=== PATIENT | female | born 1975 | race Caucasian/White ===

== ENCOUNTER 2017-01-07 06:34 | Inpatient (IN) | payer OTHER ==
[2016-12-31 10:51] VITALS: BMI 45.1
[2017-01-07] MEDS ORDERED: Lactated Ringer's 1,000 ML IV ONE ×5 (07:45→15:30)
[2017-01-07] MEDS ORDERED: ceFAZolin IV 2 gm in Dextrose 1 GM/50 ML BAG IVPB ONE (07:57)
[2017-01-07] MEDS ORDERED: Bupivacaine 0.5% Inj(30mL) ONE (08:08)
[2017-01-07] MEDS ORDERED: HYDROmorphone 0.5 mg/0.5 ml ISec IVP PRN (09:20)
[2017-01-07] MEDS ORDERED: Dexamethasone 4 mg/1 ml IVP PRN (09:20)
[2017-01-07] MEDS ORDERED: Sodium Chloride 0.9% 40 ML IV ONE (09:55)
[2017-01-07] MEDS ORDERED: Methylene Blue 10 mg/ml (1ml) Inj ONE (09:55)
[2017-01-07] MEDS ORDERED: Vasopressin 20 Units/ml Inj ONE (09:55)
[2017-01-07] MEDS ORDERED: Morphine Monoject Barrel PCA 1mg/ml IV PRN (11:58)
[2017-01-07] MEDS ORDERED: Propofol 10 mg/ml Inj (20 ML) ONE (12:41)
[2017-01-07] MEDS ORDERED: Midazolam 2 MG/2 ML VIAL ONE (12:43)
[2017-01-07] MEDS ORDERED: ceFAZolin IV 1 gm in Dextrose 2 GM/100 ML BAG IVPB ONE (13:02)
[2017-01-07] MEDS ORDERED: Succinylcholine Chloride 20 mg/ml Syr (5 ml) IV ONE (13:12)
[2017-01-07] MEDS ORDERED: Neostigmine Methylsulfate 3mg/3ml Syringe IV ONE (13:37)
--- NOTE | 2017-01-07 13:43 | PCM.SURG1 ---
Surgeon's Initial Post Op Note - Surgeon's Notes Surgeon: Addie Boudreaux MD Peripheral Edp Equipment Operator: Kedar Mulligan MD Type of Anesthesia: General Endo Pre-Operative Diagnosis: Abnormal uterine bleeding, pelvic pain Operative Findings: 8 week size uteurs, normal ovaries bilaeraly, short truncated true of fallopain tube consistent with previous tubal ligation, left para tubal cyst removed, right ovarian cystectomy simple, urine ouptut 600ml , cystoscopy bilateral uretral jets present. Dr Kedar Mulligan was certified surgical tech/first assistant ans was present for entire case and essential in gaining entry, establising pneoupenoemenium, inserting trocals, performing hysterectomy, essential in removing speciment, obtaining hemostasis, closing all layers Post-Operative Diagnosis: same as above Operation Performed: Laparascopic vaginal assisted hysterectomy, bilateral salpingectomy, right ovarian cystectomy, left para tubal cystectomy, cystoscopy Specimen/Specimens Removed: cervix, uteurs, right and left fallopoian tubel, right ovarian cyst Estimated Blood Loss: EBL {In ML}: 100 Blood Products Given: N/A Drains Used: No Drains Post-Op Condition: Good Date of Surgery/Procedure: 01/07/17 Time of Surgery/Procedure: 08:00
[2017-01-07] MEDS: HYDROmorphone 0.5 mg/0.5 ml ISec IVP PRN ×2 (14:40→15:10)
[2017-01-07 14:56] LABS: HEMATOCRIT 38.1 % (34.0-47.0); MEAN CELL VOLUME 85.9 fL (81.0-99.0); MEAN CORPUSCULAR HGB CONC 32.6 g/dL (33.0-37.0); MEAN PLATELET VOLUME 8.2 fL (7.2-11.7); RED CELL DISTRIBUTION WIDTH 13.6 % (11.5-14.5); WHITE BLOOD COUNT 14.4 K/uL (4.8-10.8)
[2017-01-07 15:05] LABS: CHLORIDE 104 mmol/L (98-107); SODIUM 139 mmol/L (132-148)
[2017-01-07 15:08] LABS: GFR AFRICAN-AMERICAN > 60
[2017-01-07 15:10] LABS: BLOOD UREA NITROGEN 9 mg/dL (7-17); CALCIUM 8.4 mg/dl (8.6-10.4); CARBON DIOXIDE 22 mmol/L (22-30); GLUCOSE,RANDOM 155 mg/dL (65-105)
[2017-01-07] MEDS ORDERED: Lactated Ringer's 1,000 ML IV SCH (15:45)
[2017-01-07] MEDS: cefOXitin IV 1 gm in Dextrose 1 GM/50 ML BAG IVPB SCH ×2 (15:45→22:38)
[2017-01-08] MEDS: cefOXitin IV 1 gm in Dextrose 1 GM/50 ML BAG IVPB SCH (06:23)
[2017-01-08] MEDS: Clindamycin 2% Vaginal Cream(40 gm) VAG SCH (06:42)
[2017-01-08 09:03] LABS: BASO % 0.4 % (0.0-2.0); EOS # 0.1 K/uL (0.0-0.7); EOS % 0.9 % (0.0-4.0); HEMATOCRIT 35.9 % (34.0-47.0); LYMPH # 1.5 K/uL (1.0-4.3); LYMPH % 13.1 % (20.0-40.0); MEAN CELL VOLUME 85.6 fL (81.0-99.0); MEAN CORPUSCULAR HEMOGLOBIN 28.3 pg (27.0-31.0); MEAN CORPUSCULAR HGB CONC 33.1 g/dL (33.0-37.0); MEAN PLATELET VOLUME 8.3 fL (7.2-11.7); MONO # 0.7 K/uL (0.0-0.8); MONO % 5.9 % (0.0-10.0); RED CELL DISTRIBUTION WIDTH 13.8 % (11.5-14.5); WHITE BLOOD COUNT 11.4 K/uL (4.8-10.8)
[2017-01-08 09:05] LABS: CHLORIDE 103 mmol/L (98-107); SODIUM 138 mmol/L (132-148)
[2017-01-08 09:06] LABS: POTASSIUM 4.1 mmol/L (3.6-5.2)
[2017-01-08 09:08] LABS: CARBON DIOXIDE 25 mmol/L (22-30); GFR AFRICAN-AMERICAN > 60
[2017-01-08 09:09] LABS: BLOOD UREA NITROGEN 7 mg/dL (7-17); CALCIUM 8.3 mg/dl (8.6-10.4); GLUCOSE,RANDOM 111 mg/dL (65-105)
[2017-01-08] MEDS ORDERED: Oxycodone/Acetaminophen 5/325 mg Tab PO PRN ×3 (10:19→10:45)
--- NOTE | 2017-01-08 11:21 | CP.PCM.PN ---
Subjective - Date & Time of Evaluation Date of Evaluation: 01/08/17 Time of Evaluation: 10:00 - Subjective Subjective: Pt seen and examined and reports pain controlled. Pt report ambuating voiding, toleratng clear liquds, not passing flatus. Pt denies any lightheadness, dizzyness, CP, SOB, fever, chills, nause, vomiting. Objective - Vital Signs/Intake and Output Vital Signs (last 24 hours): Temp Pulse Resp BP Pulse Ox 98.5 F 70 20 96/66 L 98 01/08/17 08:18 01/08/17 08:18 01/08/17 08:18 01/08/17 08:18 01/08/17 08:18 Intake and Output: 01/08/17 01/08/17 06:59 18:59 Output Total 600 Balance -600 - Medications Medications: Current Medications Acetaminophen (Tylenol 325mg Tab) 650 mg PO Q6 PRN PRN Reason: Pain, Mild (1-3) Clindamycin Phosphate (Clindamycin 2%) 0 gm VAG HS [facility] Last Admin: 01/08/17 06:42 Dose: Not Given Lactated Ringer's (Lactated Ringer's) 1,000 mls @ 125 mls/hr IV .Q8H [facility] Ondansetron HCl (Zofran Inj) 4 mg IVP Q8H PRN PRN Reason: Nausea/Vomiting Oxycodone/Acetaminophen (Percocet 5/325 Mg Tab) 1 tab PO Q4H PRN PRN Reason: Pain, moderate (4-7) Stop: 01/11/17 10:46 Oxycodone/Acetaminophen (Percocet 5/325 Mg Tab) 2 tab PO Q4H PRN PRN Reason: Pain, severe (8-10) Stop: 01/11/17 10:46 - Labs Labs: 01/08/17 08:54 01/08/17 08:54 - Constitutional Appears: Well, Non-toxic - Eye Exam Eye Exam: EOMI, Normal appearance - ENT Exam ENT Exam: Mucous Membranes Moist, Normal Exam - Neck Exam Neck Exam: Full ROM - Respiratory Exam Respiratory Exam: Clear to Ausculation Bilateral, NORMAL BREATHING PATTERN - Cardiovascular Exam Cardiovascular Exam: REGULAR RHYTHM, +S1, +S2 - GI/Abdominal Exam GI & Abdominal Exam: Normal Bowel Sounds Additional comments: soft, tender to palpation, no guarding, no rebound tendernses, no rigidity, +BS Incsiion C/D/I no vaginal bleeding, vaginal packing removed - Exam Exam: NORMAL INSPECTION - Extremities Exam Extremities Exam: Full ROM, Normal Inspection - Back Exam Back Exam: NORMAL INSPECTION - Neurological Exam Neurological Exam: CN II-XII Intact, Normal Gait, Oriented x3 - Skin Skin Exam: Dry, Intact, Normal Color, Warm Assessment and Plan (1) S/P laparoscopic hysterectomy Assessment & Plan: 1. Pain Managmetn: Tyelnol for moderate pain, percocet for severe pain. 2. Diet: Advance as tolerated 3. D/c heplock once tolerating regular diet 4. Continue ambuation, incentive spirometer 5. Bowel regiment: simethicone q 8 hour, milk of magnesia. Status: Acute
[2017-01-08] MEDS: Simethicone 80 mg Chewtab PO SCH ×2 (12:39→21:54)
[2017-01-08] MEDS: Oxycodone/Acetaminophen 5/325 mg Tab PO PRN ×2 (12:40→17:30)
[2017-01-08] MEDS ORDERED: Magnesium Hydroxide Susp 30 ml UD PO PRN (22:00)
[2017-01-09] MEDS: Oxycodone/Acetaminophen 5/325 mg Tab PO PRN (02:22)
[2017-01-09] MEDS: Clindamycin 2% Vaginal Cream(40 gm) VAG SCH (02:26)
[2017-01-09] MEDS: Simethicone 80 mg Chewtab PO SCH (06:46)
[2017-01-09 08:33] VITALS: BP 118/82; PULSE 68; RESP 18; TEMP 97.3; O2SAT 96
--- NOTE | 2017-01-09 08:42 | CP.PCM.PN ---
Subjective - Date & Time of Evaluation Date of Evaluation: 01/09/17 Time of Evaluation: 06:30 - Subjective Subjective: Delayed entry: pt seen and examined and reports pain is cotnrolled with medication. Pt ambuating, voiding, passing flatuss. Pt reports light vaignal spotting with using restroom, no BM, tolerating regular diet, denies any fevers , chills, cp, sob, lightheadnes, dizzyness. Objective - Vital Signs/Intake and Output Vital Signs (last 24 hours): Temp Pulse Resp BP Pulse Ox 97.3 F L 68 18 118/82 96 01/09/17 08:00 01/09/17 08:00 01/09/17 08:00 01/09/17 08:00 01/09/17 08:00 - Medications Medications: Current Medications Acetaminophen (Tylenol 325mg Tab) 650 mg PO Q6 PRN PRN Reason: Pain, Mild (1-3) Clindamycin Phosphate (Clindamycin 2%) 0 gm VAG HS [facility] Last Admin: 01/09/17 02:26 Dose: Not Given Lactated Ringer's (Lactated Ringer's) 1,000 mls @ 125 mls/hr IV .Q8H [facility] Magnesium Hydroxide (Milk Of Magnesia) 30 ml PO HS PRN Last Admin: 01/08/17 21:54 Dose: 30 ml Ondansetron HCl (Zofran Inj) 4 mg IVP Q8H PRN PRN Reason: Nausea/Vomiting Oxycodone/Acetaminophen (Percocet 5/325 Mg Tab) 1 tab PO Q4H PRN PRN Reason: Pain, moderate (4-7) Stop: 01/11/17 10:46 Last Admin: 01/09/17 02:22 Dose: 1 tab Oxycodone/Acetaminophen (Percocet 5/325 Mg Tab) 2 tab PO Q4H PRN PRN Reason: Pain, severe (8-10) Stop: 01/11/17 10:46 Simethicone (Mylicon Chew Tab) 80 mg PO Q8 [facility] Last Admin: 01/09/17 06:46 Dose: 80 mg - Labs Labs: 01/08/17 08:54 01/08/17 08:54 - Constitutional Appears: Well, Non-toxic - Eye Exam Eye Exam: EOMI, Normal appearance Pupil Exam: NORMAL ACCOMODATION - ENT Exam ENT Exam: Mucous Membranes Moist, Normal Exam - Respiratory Exam Respiratory Exam: Clear to Ausculation Bilateral, NORMAL BREATHING PATTERN - Cardiovascular Exam Cardiovascular Exam: REGULAR RHYTHM, +S1, +S2 - GI/Abdominal Exam GI & Abdominal Exam: Soft, Normal Bowel Sounds Additional comments: obese, non tendern, no guarding, no reboudn tenderness, no rigidity, +BS incsions c/d/i no vagianlb leeding - Extremities Exam Extremities Exam: Full ROM, Normal Capillary Refill, Normal Inspection Assessment and Plan (1) S/P laparoscopic hysterectomy Assessment & Plan: 1. Pain managment: percoet/ t yonoel 2. Regular diet 3. Bowel regimen: Prune juice, milk of magnesia 4. anticiate d/ chom today 5. RTO 1 week, precatuiosn given. Status: Acute
--- NOTE | 2017-01-09 08:45 | CP.PCM.DIS ---
Provider - Provider Date of Admission: 01/07/17 06:34 Attending physician: Addie Boudreaux MD Time Spent in preparation of Discharge (in minutes): 30 Diagnosis - Discharge Diagnosis (1) S/P laparoscopic hysterectomy Status: Acute Hospital Course - Lab Results Lab Results: Most Recent Lab Values WBC 11.4 K/uL (4.8-10.8) H 01/08/17 08:54 RBC 4.19 Mil/uL (3.80-5.20) 01/08/17 08:54 Hgb 11.9 g/dL (11.0-16.0) 01/08/17 08:54 Hct 35.9 % (34.0-47.0) 01/08/17 08:54 MCV 85.6 fL (81.0-99.0) 01/08/17 08:54 MCH 28.3 pg (27.0-31.0) 01/08/17 08:54 MCHC 33.1 g/dL (33.0-37.0) 01/08/17 08:54 RDW 13.8 % (11.5-14.5) 01/08/17 08:54 Plt Count 321 K/uL (130-400) 01/08/17 08:54 MPV 8.3 fL (7.2-11.7) 01/08/17 08:54 Neut % (Auto) 79.7 % (50.0-75.0) H 01/08/17 08:54 Lymph % (Auto) 13.1 % (20.0-40.0) L 01/08/17 08:54 Dent % (Auto) 5.9 % (0.0-10.0) 01/08/17 08:54 Eos % (Auto) 0.9 % (0.0-4.0) 01/08/17 08:54 Baso % (Auto) 0.4 % (0.0-2.0) 01/08/17 08:54 Neut # 9.1 K/uL (1.8-7.0) H 01/08/17 08:54 Lymph # 1.5 K/uL (1.0-4.3) 01/08/17 08:54 Dent # 0.7 K/uL (0.0-0.8) 01/08/17 08:54 Eos # 0.1 K/uL (0.0-0.7) 01/08/17 08:54 Baso # 0.0 K/uL (0.0-0.2) 01/08/17 08:54 Sodium 138 mmol/L (132-148) 01/08/17 08:54 Potassium 4.1 mmol/L (3.6-5.2) 01/08/17 08:54 Chloride 103 mmol/L (98-107) 01/08/17 08:54 Carbon Dioxide 25 mmol/L (22-30) 01/08/17 08:54 Anion Gap 14 (10-20) 01/08/17 08:54 BUN 7 mg/dL (7-17) 01/08/17 08:54 Creatinine 0.6 MG/DL (0.7-1.2) L 01/08/17 08:54 Est GFR ( Amer) > 60 01/08/17 08:54 Est GFR (Non-Af Amer) > 60 01/08/17 08:54 Random Glucose 111 mg/dL (65-105) H 01/08/17 08:54 Calcium 8.3 mg/dl (8.6-10.4) L 01/08/17 08:54 Blood Type O POSITIVE 01/07/17 07:15 Antibody Screen Negative 01/07/17 07:15 - Hospital Course Hospital Course: s/p lap hyserectomy normal postoperative course Discharge Exam - Eye Exam Eye Exam: EOMI - Respiratory Exam Respiratory Exam: Clear to PA & Lateral, NORMAL BREATHING PATTERN, UNREMARKABLE - Cardiovascular Exam Cardiovascular Exam: REGULAR RHYTHM, +S1, +S2 - GI/Abdominal Exam GI & Abdominal Exam: Normal Bowel Sounds, Unremarkable - Exam Exam: NORMAL INSPECTION Discharge Plan - Discharge Medications Prescriptions: oxyCODONE/Acetaminophen [Percocet 5/325 mg Tab] 1 tab PO Q6 #20 tab - Follow Up Plan Condition: GOOD Disposition: HOME/ ROUTINE Instructions: Laparoscopically Assisted Vaginal Hysterectomy (DC), Wound Healing and Your Diet (DC), Salpingectomy (DC)
--- NOTE | 2017-01-09 22:31 | OP ---
PROCEDURE DATE: 01/07/2017 SURGEON: Dr. Addie Boudreaux. SLIDE FASTENERS INSPECTOR: Dr. Kedar Mulligan. TYPE OF ANESTHESIA: General endotracheal. PREOPERATIVE DIAGNOSES: Abnormal uterine bleeding, pelvic pain. POSTOPERATIVE DIAGNOSES: Abnormal uterine bleeding, pelvic pain. OPERATIVE FINDINGS: An 8-week size uterus, normal ovaries bilaterally, short truncated area. The fallopian tubes consistent with previous tubal ligation, left paratubal cyst removed, right ovarian cyst simple cystectomy performed. Urine output 600 mL. Cystoscopy. Bilateral ureteral jets present. Dr. Kedar Mulligan was the surgical pathologist and was present for the entire case and was essential in gaining entry established pneumoperitoneum, inserting trocars, performing hysterectomy, removing specimen, obtaining hemostasis and closing all layers. OPERATION PERFORMED: Total laparoscopic assisted vaginal hysterectomy, bilateral salpingectomy, right ovarian cystectomy, left paratubal cystectomy, cystoscopy. SPECIMEN REMOVED: Cervix, uterus, right and left fallopian tube, right ovarian cyst. ESTIMATED BLOOD LOSS: 100 mL. BLOOD PRODUCTS: None. COMPLICATIONS: None. DESCRIPTION OF PROCEDURE: The patient was taken the preoperative area. Risks, benefits, indications and alternatives of the procedure were reviewed with patient. The patient agreed to the procedure and signed the consent form. She was taken to the operating room. IV fluids were given and pneumatic compression stockings were applied to the lower extremities. General anesthesia was obtained without difficulty. The dorsal lithotomy position was obtained with Giuliano type stirrups with the knee bent at a 30-degree angle. Both arms were tucked on the side. Exam under anesthesia revealed the above findings. The patient was prepped and draped. A Pope catheter was inserted. A humi uterine manipulator with ____was placed securely. Attention was turned to abdomen where two towel clamps were placed at the lateral sasha umbilical folds and lateral tractions were applied to expose the base of the umbilicus. Local Marcaine __.5 1cc___was injected infraumbilical. A vertical skin incision 5 mm was made across the umbilical fold. After the Veress needle was then inserted and confirmation was placed with saline drop test, the abdomen was insufflated with 15 mmHg of CO2 gas and pneumperinetum was establisted. The 5 mm trocar was inserted with the laparoscope under direct visualization. An intraabdominal survey was conducted. The pelvic anatomy was noted as above. Two 5 mm trocars were inserted in the bilateral lower quadrants 2 fingerbreadths from the anterior superior iliac spine and dilated to the umbilicus. One 8 mm trocar was inserted in the midline between the pubic symphysis and umbilicus. The straight Trendelenburg position 45-degree angle was obtained to facilitate pelvic exposure. The uterus was elevated from sidney pelvis with a uterien manipulatory. The right ovary was retracted atneriorly using an atrmatic grasper to mobilize the uterovarian ligament. The IP ligament was identified adn uretrer ws noted to be peristasisling at pelvic brim. Right fallopian tube wsa removed using ligasure device up to uterovarian ligament. A siimple right ovarian cyst with lear fluid ws removed in additona to left paratubal cyst. The round and board ligaments were sequentially transected with a ligasure device untile the uterine artery was exposed. the procedure was repeated on the left side. laparascopic resection were complete at this point. the pneumperetionum was released after visually confirmign hemostasis. The patient was repositioned in dorsal lithotomy position with hips flexed and thighs slightly abducted. The cervix was grasped with a double toothed tenaclum. A circumferential incsion around cervix wsa made with a bovie. Blunt and sharp dissection was performed along the appropriate plane. The posterior cul de sac ws entered sharply with arevalo sicissors and peritoneal fluid was noted. Significant uterine descente ws noted afer sidney uterosacral and cardinal ligaments were sequentially clamped, transected, and suture ligated. The anterior cul de sac was then entered with no difficulty. The uterine vessels were identified, clamped, cut adn ligated. The uterus, cervix were delivered through the vagina and sent to pathology. The tubes were removed laparascopically. The vaginal angles were transfixed to the uterosacral ligaments. the Vaginal cuff was closed with figure of 8 sutures. The penumoperiteum was reestablished. The pelvis was thoroughly inspected with no active bleeding noted. All instruments were removed from the abdomen and vagina uner direct visualization and there was good hemostasis. All counts were correct times two. The skin incisions were closed in a subcuticular fashion using 3-0 Monocryl in a running continous fashion. The patient was taken out of Trendelenburg position and cystoscopy was performed using 21- Latvian cystoscope was used and inserted into the ___urethra after the Pope catheter was removed and there were bilateral ureteral jets visualized on both sides. There were no sutures or masses or any other pathology noted within the bladder. The cystoscope was removed. At the end of the procedure, all needle, sponge and instrument counts were correct x 2. The patient tolerated the procedure well and was transferred to recovery room in stable condition. Addie Boudreaux MD cc: [id number] TT: 01/09/2017 22:31:15 jeimy BOLDEN
== END 2017-01-09 10:00 | disposition home or self-care (01) | DRG 743 ==
LOC: C.9S 06:34 → EDSTATUS 07:30 → C.4M 17:30
PROVIDERS: ADMIT Obstetrics & Gynecology; ATTEND Obstetrics & Gynecology
PROC: 0UB44ZZ Excision of Uterine Supporting Structure, Percutaneous Endoscopic Approach (ICD-10-PCS; 2017-01-07)
PROC: 0UT9FZZ Resection of Uterus, Via Natural or Artificial Opening With Percutaneous Endoscopic Assistance (ICD-10-PCS; principal; 2017-01-07 07:45)
PROC: 0UTC7ZZ Resection of Cervix, Via Natural or Artificial Opening (ICD-10-PCS; 2017-01-07 07:45)
PROC: 0UT7FZZ Resection of Bilateral Fallopian Tubes, Via Natural or Artificial Opening With Percutaneous Endoscopic Assistance (ICD-10-PCS; 2017-01-07 07:45)
PROC: 0UB04ZZ Excision of Right Ovary, Percutaneous Endoscopic Approach (ICD-10-PCS; 2017-01-07 07:45)
DX: N80.0 Endometriosis of uterus (principal); N83.8 Other noninflammatory disorders of ovary, fallopian tube and broad ligament; N93.8 Other specified abnormal uterine and vaginal bleeding; N88.8 Other specified noninflammatory disorders of cervix uteri; N83.11 Corpus luteum cyst of right ovary

== ENCOUNTER 2017-06-08 07:18 | Day surgery (SDC) | payer OTHER ==
[2017-06-08 07:46] VITALS: BMI 41.8
[2017-06-08 08:08] VITALS: TEMP 97.8; O2SAT 100
[2017-06-08] MEDS ORDERED: Propofol 10 mg/ml Inj (20 ML) ONE (09:55)
[2017-06-08] MEDS ORDERED: Lactated Ringer's 500 ML IV ONE (09:58)
[2017-06-08] MEDS ORDERED: Lactated Ringer's 500 ML IV SCH (10:00)
[2017-06-08 11:19] VITALS: BP 102/60; PULSE 62; RESP 16
== END 2017-06-08 11:30 | disposition home or self-care (01) ==
LOC: C.ENDO 07:18
PROVIDERS: ATTEND Internal Medicine Gastroenterology
DX: D12.4 Benign neoplasm of descending colon (principal); K64.1 Second degree hemorrhoids; K63.89 Other specified diseases of intestine
CPT/HCPCS: 45380; 45385; 88305; J2704; J3010; J7120

== ENCOUNTER 2017-06-30 10:28 | Day surgery (SDC) | payer OTHER ==
[2017-06-30] MEDS ORDERED: Lactated Ringer's 1,000 ML IV ONE ×2 (13:00→15:15)
[2017-06-30] MEDS ORDERED: ceFAZolin IV 2 gm in Dextrose 2 GM/50 ML BAG IVPB ONE (13:03)
[2017-06-30] MEDS ORDERED: Bupivacaine HCl 0.25% PF (10 ml) Inj ONE (13:03)
[2017-06-30] MEDS ORDERED: Propofol 10 mg/ml Inj (20 ML) ONE (13:06)
[2017-06-30] MEDS ORDERED: Rocuronium 10 mg/ml (5 ml) ONE (13:12)
[2017-06-30] MEDS ORDERED: Midazolam 2 MG/2 ML VIAL ONE (13:12)
[2017-06-30] MEDS ORDERED: Neostigmine Methylsulfate 3mg/3ml Syringe IV ONE (13:56)
--- NOTE | 2017-06-30 14:19 | PCM.SURG1 ---
Surgeon's Initial Post Op Note - Surgeon's Notes Surgeon: Addie Boudreaux MD Plastics Bench Mechanic: Eber Hayes MD Type of Anesthesia: General Endo Pre-Operative Diagnosis: Pelvic Pain, Bilateral Ovarian cyst Operative Findings: Adhesions of ovary to bladder, vaginal cuff and bowel on left side, no defintive righ tovary visulaize, no gross abnormalites of liver, abdominal cavity, bowel adhesions to left pelvic side wall. Dr Eber Hayes was nurses medical assistants phlebotomists and was present for entire case adn essential in gainign entry laparascopically, lysising adhesions, holding camera. due ot dense adhesios of ovary near bladder and overylying bowel to cuff decision made not to further resect. Abdomen irregated, good hemostasis, no cmplications. Post-Operative Diagnosis: same as above, pelvic adhesions Operation Performed: Operative laparascopy, lysis of adhesions Specimen/Specimens Removed: none Estimated Blood Loss: EBL {In ML}: 10 Blood Products Given: N/A Drains Used: No Drains Post-Op Condition: Good Date of Surgery/Procedure: 06/30/17 Time of Surgery/Procedure: 14:00
[2017-06-30] MEDS ORDERED: HYDROmorphone 0.5 mg/0.5 ml ISec IVP PRN (14:29)
[2017-06-30 16:21] VITALS: RESP 16
[2017-06-30 18:05] VITALS: BP 115/75; PULSE 70; TEMP 97.6; O2SAT 97
--- NOTE | 2017-07-01 02:20 | OP ---
PROCEDURE DATE: 06/30/2017 SURGEON: Addie Boudreaux MD. HIGHBALLER: Eber Hayes MD. TYPE OF ANESTHESIA: General endotracheal. PREOPERATIVE DIAGNOSES: Pelvic pain, bilateral ovarian cysts. POSTOPERATIVE DIAGNOSES: Pelvic pain, bilateral ovarian cysts, pelvic adhesions. OPERATION PERFORMED: Operative laparoscopy, lysis of adhesions. OPERATIVE FINDINGS: Adhesions of ovary to bladder, vaginal cuff and bowel, left side. No definitive right ovary visualized. No gross abnormalities to liver, abdominal cavity, bowel. Adhesions to left pelvic sidewall. Dr. Eber Hayes was surgical services director, was present for the entire case and essential gaining entry laparoscopically, lysis of adhesions, holding camera due to dense adhesions of ovary near bladder and overlying bowel , decision made not to further resect, abdomen irrigated. Good hemostasis. No complications. SPECIMEN REMOVED: None. ESTIMATED BLOOD LOSS: 10 mL. BLOOD PRODUCTS: None. COMPLICATIONS: None. URINE OUTPUT: Over 200 mL of urine. INDICATIONS: Patient is a 42-year-old that underwent a laparoscopic hysterectomy with bilateral salpingectomy in December with chronic pelvic pain status post GI evaluation with continued pain. On subsequent workup, was noted to have bilateral ovarian cysts. Patient also reports recent diagnosis of family history of ovarian cancer and concern and requesting bilateral oophorectomy despite being aware of risks of cardiovascular and osteoporosis and cognitive possible effect. Patient consented for laparoscopy, ovarian cystectomy, possible oophorectomy, bilateral possible open. Risks, benefits, alternatives and indications not limited to bleeding, infection, risks of injury to bowel, bladder, other organs, possible open, needing a blood transfusion discussed with patient. DESCRIPTION OF PROCEDURE: Patient was taken to the operating room where she was given general anesthesia. Once found to be adequate, she was placed on the operating table in dorsal supine position with legs supported using stirrups. Patient was then prepped and draped in usual sterile fashion. A time-out was confirmed correct patient and correct procedure. Following this, a Pope catheter that was inserted into urethra to drain the bladder. Sponge stick was then inserted into the vagina to help with manipulation. The lower extremities were then lowered and following this, the surgeon re-gloved and attention was then turned to the abdomen. A 0.25 Marcaine of 2 mL was inserted intraabdominally and a skin incision was made with a scalpel. The skin was then tented up with 2 towel clips and a Veress needle was then inserted. Confirmation was then placed with a normal saline test. Following this, CO2 insufflation was then inserted with a normal opening pressure, insufflated to 15 mmHg. After abdominal insufflation, the 5 mm laparoscope was inserted into the trocar under direct visualization. Upon confirmation of placement, the 2 towel clips were removed and two 5 mm ports were then inserted into the right lower quadrant after administering local under direct visualization. The patient was then placed in Trendelenburg position and the bowel was then retracted out of the operative field. Close inspection of the abdominal and pelvic cavity once inside, there was dense adhesions of the ovary noted within the cul-de-sac over the bladder, the vaginal cuff area and also with bowel adhesions noted. Careful dissection of adhesions was done in clear spaces bluntly and there was good hemostasis noted. After 15 minutes of careful dissection, the ovary was unable to be freely mobilized in the left side and decision was made not to continue. There was no definitive right ovary visualized despite manipulation. The patient was then placed in straight position. All instruments removed including the laparoscope. The abdomen was then desufflated. There was good hemostasis noted. The skin was re-approximated and closed with Dermabond. The Pope catheter was then removed in addition to the . At the end of the procedure, all needle, sponge and instrument counts were noted correct x2. The patient tolerated the procedure well and was transferred to recovery in stable condition. Addie Boudreaux MD
== END 2017-06-30 18:14 | disposition home or self-care (01) ==
LOC: C.SDS 10:28
PROVIDERS: ATTEND Obstetrics & Gynecology
DX: N73.6 Female pelvic peritoneal adhesions (postinfective) (principal); R10.2 Pelvic and perineal pain; N83.8 Other noninflammatory disorders of ovary, fallopian tube and broad ligament; N83.201 Unspecified ovarian cyst, right side; N83.202 Unspecified ovarian cyst, left side
CPT/HCPCS: 36415; 58661; 86850; 86900; J0690; J1100; J1170; J2250; J2405; J2704; J2710; J3010; J7120

== ENCOUNTER 2017-08-12 05:48 | Inpatient (IN) | payer OTHER ==
[2017-08-12 05:48] VITALS: BMI 41.8
--- NOTE | 2017-08-12 06:12 | C.PDOC ---
History Of Present Illness <Ivelisse Couch - Last Filed: 08/12/17 13:16> <Manuel Fairchild - Last Filed: 08/12/17 16:09> pt woke up to go to the bathroom and developed shortness of breath. took her peak flow and " it was about 300" [place] chest pressure with coughing. Pt is 3 days post laparoscopic b/l oopherectomy. No f/c/n/v. Speaking in complete sentences (Manuel Fairchild) <Ivelisse Couch - Last Filed: 08/12/17 13:16> History Per: Patient History/Exam Limitations: no limitations Onset/Duration Of Symptoms: Hrs Current Symptoms Are (Timing): Still Present Initiating Event: Upper Respiratory Illness Quality: Tightness, Pressure Exacerbating Factor(s): Laying Flat, Coughing Current Respiratory Medications: See Home Med List Severity: Moderate Pain Scale Rating Of: 5 Associated Symptoms: Productive Cough. denies: Fever, Chills, Chest Pain, Leg/ Calf Pain, Anxiety Reports Recently: Treated By A Physician, Hospitalized Recent travel outside of the [place]: No Additional History Per: Family <Manuel Fairchild - Last Filed: 08/12/17 16:09> Time Seen by Provider: 08/12/17 06:12 Chief Complaint (Nursing): Shortness Of Breath Past Medical History Reviewed: Historical Data, Nursing Documentation, Vital Signs - Medical History PMH: Asthma (NEVER HOSPITALIZED), Bronchitis (CHRONIC) Denies: Chronic Kidney Disease Surgical History: Tonsillectomy Family History: States: No Known Family Hx - Social History Hx Alcohol Use: Yes Hx Substance Use: No - Immunization History Hx Influenza Vaccination: No <Manuel Fairchild - Last Filed: 08/12/17 16:09> Vital Signs: Last Vital Signs Temp 98.9 F 08/12/17 14:30 Pulse 85 08/12/17 14:30 Resp 20 08/12/17 14:30 BP 135/81 08/12/17 14:30 Pulse Ox 100 08/12/17 16:09 - [facility] Procedures EXCISION OF RIGHT OVARY, PERCUTANEOUS ENDOSCOPIC APPROACH (01/07/17) EXCISION OF UTERINE SUPPORTING STRUCTURE, PERC ENDO APPROACH (01/07/17) RESECTION OF BI FALLOPIAN TUBE, VIA OPENING W PERC ENDO (01/07/17) RESECTION OF CERVIX, VIA NATURAL OR ARTIFICIAL OPENING (01/07/17) RESECTION OF UTERUS, VIA OPENING W PERC ENDO (01/07/17) Review Of Systems Constitutional: Negative for: Fever, Chills Eyes: Negative for: Redness ENT: Negative for: Throat Pain Cardiovascular: Positive for: Chest Pain. Negative for: Palpitations Respiratory: Positive for: Cough, Shortness of Breath, Sputum (yellow) Gastrointestinal: Positive for: Abdominal Pain (mild(post op)). Negative for: Nausea, Vomiting Genitourinary: Negative for: Dysuria Musculoskeletal: Negative for: Back Pain Skin: Negative for: Rash Neurological: Negative for: Weakness Psych: Negative for: Anxiety <Manuel Fairchild - Last Filed: 08/12/17 16:09> Physical Exam - Physical Exam Appears: Non-toxic Skin: Warm, Dry Head: Normacephalic Eye(s): bilateral: Normal Inspection Oral Mucosa: Moist Neck: Trachea Midline, Supple Chest: Symmetrical Cardiovascular: Rhythm Regular Respiratory: No Rales, No Rhonchi, Wheezing (few at bases) Gastrointestinal/Abdominal: Soft, Tenderness (mild), No Distention, No Guarding , Other (lap incision sites clean and dry, no exudates) Back: No CVA Tenderness Extremity: Normal ROM Extremity: Bilateral: Atraumatic, Normal Color And Temperature, Normal ROM Pulses: Left Dorsalis Pedis: Normal, Right Dorsalis Pedis: Normal Neurological/Psych: Oriented x3, Normal Speech, Normal Cognition Gait: Steady <Manuel Fairchild - Last Filed: 08/12/17 16:09> ED Course And Treatment - Laboratory Results Result Diagrams: 08/12/17 07:00 08/12/17 07:00 <Ivelisse Couch - Last Filed: 08/12/17 13:16> - Laboratory Results Result Diagrams: 08/12/17 07:00 08/12/17 07:00 ECG: Interpreted By Me, Viewed By Me O2 Sat by Pulse Oximetry: 100 Pulse Ox Interpretation: Normal - Radiology CXR Interpretation: No: Infiltrates, Fracture, Pnemothorax Progress Note: no asa given as pt is allergiv to NSAIDS <Manuel Fairchild - Last Filed: 08/12/17 16:09> Disposition <Ivelisse Couch - Last Filed: 08/12/17 13:16> Counseled Patient/Family Regarding: Studies Performed, Diagnosis - Disposition Disposition Time: 06:12 <SapsueValdi - Last Filed: 08/12/17 16:09> - Disposition Condition: FAIR - Clinical Impression Clinical Impression: Dyspnea Physician Patient Turnover Patient Signed Over To: Ivelisse Couch Handoff Comments: pending labs, re-eval and dispostion <PolinasueValdi - Last Filed: 08/12/17 16:09> Addendum <Ivelisse Couch - Last Filed: 08/12/17 13:16> <Sapira,Valdi - Last Filed: 08/12/17 16:09> Addendum: Patient c/o SOB since waking up this morning, took singulair; states does not feel like typical asthma. She is s/p B/L oophorectomy (for endometriosis) on . D-dimer elevated, CTA chest ordered. CTA chest nondiagnostic/ suboptimal. Patient given SC LOvenox and VG scan ordered. Admitted under Dr. Amanda Taylor, who requests Dr. Danielson for pulmonary. Accession No. : [id number] Patient Name / ID : ELIF MULLEN / [id number] Exam Date : 08/12/2017 11:31:19 ( Approved ) Study Comment : Sex / Age : F / 42Y Creator : Lisa Richard Dictator : Mague Calderon MD Geophysical Prospecting Surveyor : [employer] Make Up Helper : Mague Calderon MD Approver2 : Report Date : 08/12/2017 12:19:08 My Comment : CTA chest PE protocol Indication: POST OP, SOB, ELEVATED D-DIMER, R/O PE Technique: Contiguous axial images were obtained through the chest with intravenous contrast enhancement. Sagittal and coronal reconstructions were generated and reviewed. This CT exam was performed using 1 or more of the following dose reduction techniques: Automated exposure control, adjustment of the MAA and/or kV according to patient size, and/or use of iterative reconstruction technique. IV Contrast: 100 mL Visipaque 320 Radiation dose (DLP): 408.40 MGy-cm. Comparison: Chest x-ray performed 08/12/17 Findings: Visualized portions of the inferior thyroid gland appear unremarkable. The mediastinal and hilar vascular structures appear within normal limits. The heart appears within normal limits of size. There is nondiagnostic enhancement of the pulmonary arteries due to missed bolus of the intravenous contrast precluding evaluation for pulmonary embolus. Scattered tiny tree-in-bud like opacities within the medial right upper and middle lobe, may be infectious or inflammatory. No focal consolidation. No pleural effusion. No pneumothorax. 2 mm right upper lobe nodular density ( series 4, image 38). 3 mm subpleural right upper lobe nodule (series 4) image 41 ). Partially imaged probable splenules measure approximately 1.5 cm and 0.9 cm. Limited visualized portions of the upper abdomen appear otherwise grossly unremarkable. No acute osseous abnormality is detected. Impression: There is nondiagnostic enhancement of the pulmonary arteries due to missed bolus of the intravenous contrast precluding evaluation for pulmonary embolus. Scattered tiny tree-in-bud like opacities within the medial right upper and middle lobe, may be infectious or inflammatory. Correlate clinically. 2 mm right upper lobes and 3 mm subpleural right upper lobe nodule ; according to the 2017 Fleischner criteria, if the patient is low risk, no routine follow- up is recommended. If the patient is high risk, optional CT at 12 months is recommended. (Ivelisse Couch)
[2017-08-12] MEDS ORDERED: Albuterol 0.083% Inhal Sol (2.5 mg/3 mL) UD ONE (06:20)
[2017-08-12] MEDS: Albuterol-Ipratrop 3 mg / 0.5 (3 ml) UD IH SCH ×5 (06:33→22:33)
[2017-08-12] MEDS ORDERED: Albuterol-Ipratrop 3 mg / 0.5 (3 ml) UD ONE ×2 (06:47→18:09)
[2017-08-12 07:04] LABS: ABG ALLEN TEST POS; ARTERIAL BLOOD GAS HCO3 27.2 mmol/L (21-28); ARTERIAL BLOOD GAS O2 SAT 99.2 % (95-98); ARTERIAL BLOOD GAS PCO2 34 mm/Hg (35-45); ARTERIAL BLOOD GAS PH 7.49 (7.35-7.45); ARTERIAL BLOOD GAS PO2 135 mm/Hg (80-100); ARTERIAL BLOOD GAS TCO2 26.9 mmol/L (22-28)
[2017-08-12 07:16] LABS: BASO % 0.7 % (0.0-2.0); EOS # 0.2 K/uL (0.0-0.7); EOS % 5.1 % (0.0-4.0); HEMOGLOBIN 12.1 g/dL (11.0-16.0); LYMPH % 23.9 % (20.0-40.0); MEAN CELL VOLUME 81.3 fL (81.0-99.0); MEAN CORPUSCULAR HEMOGLOBIN 27.7 pg (27.0-31.0); MEAN PLATELET VOLUME 7.9 fL (7.2-11.7); MONO # 0.5 K/uL (0.0-0.8); MONO % 11.1 % (0.0-10.0); NEUT # 2.5 K/uL (1.8-7.0); NEUT % 59.2 % (50.0-75.0); NRBC % 0.2 % (0.0-2.0); RBC 4.36 Mil/uL (3.80-5.20); RED CELL DISTRIBUTION WIDTH 14.2 % (11.5-14.5); WHITE BLOOD COUNT 4.3 K/uL (4.8-10.8)
--- NOTE | 2017-08-12 07:33 | RAD ---
PROCEDURE: CHEST RADIOGRAPH, 1 VIEW HISTORY: SOB COMPARISON: None available. FINDINGS: LUNGS: Clear. PLEURA: No pneumothorax or pleural fluid seen. CARDIOVASCULAR: Normal. OSSEOUS STRUCTURES: No significant abnormalities. VISUALIZED UPPER ABDOMEN: Normal. OTHER FINDINGS: None. IMPRESSION: No active disease. Concordant results with the preliminary interpretation rendered by the emergency department physician procedure.
[2017-08-12 07:34] LABS: SQUAMOUS EPITHIAL 1 /hpf (0-5); URINE BILIRUBIN NEGATIVE (NEGATIVE); URINE BLOOD NEGATIVE (NEGATIVE); URINE CLARITY Clear (Clear); URINE COLOR Yellow (YELLOW); URINE GLUCOSE (UA) NORMAL (Normal); URINE LEUKOCYTE ESTERASE NEG Leu/uL (Negative); URINE NITRATE NEGATIVE (NEGATIVE); URINE PROTEIN NEGATIVE (NEGATIVE); URINE UROBILINOGEN NORMAL mg/dL (0.2-1.0)
[2017-08-12 07:41] LABS: HCG,QUALITATIVE URINE NEGATIVE (NEGATIVE)
[2017-08-12 08:00] LABS: INR 1.1; PROTHROMBIN TIME 12.3 SECONDS (9.7-12.2)
[2017-08-12 08:08] LABS: ALB/GLOB RATIO 1.1 (1.0-2.1); ALBUMIN 3.7 g/dL (3.5-5.0); ALT/SGPT 33 U/L (9-52); AST/SGOT 34 U/L (14-36); BLOOD UREA NITROGEN 7 mg/dL (7-17); CALCIUM 8.7 mg/dl (8.6-10.4); GFR AFRICAN-AMERICAN > 60; GFR NON-AFRICAN AMERICAN > 60
[2017-08-12 08:12] LABS: B-TYPE NATRIURETIC PEPTIDE 76.4 pg/mL (0-450)
[2017-08-12] MEDS ORDERED: Iodixanol 320 mg/ml 150 ml Bottle IV ONE (11:11)
--- NOTE | 2017-08-12 12:39 | CT ---
CTA chest PE protocol Indication: POST OP, SOB, ELEVATED D-DIMER, R/O PE Technique: Contiguous axial images were obtained through the chest with intravenous contrast enhancement. Sagittal and coronal reconstructions were generated and reviewed. This CT exam was performed using 1 or more of the following dose reduction techniques: Automated exposure control, adjustment of the MAA and/or kV according to patient size, and/or use of iterative reconstruction technique. IV Contrast: 100 mL Visipaque 320 Radiation dose (DLP): 408.40 MGy-cm. Comparison: Chest x-ray performed 08/12/17 Findings: Visualized portions of the inferior thyroid gland appear unremarkable. The mediastinal and hilar vascular structures appear within normal limits. The heart appears within normal limits of size. There is nondiagnostic enhancement of the pulmonary arteries due to missed bolus of the intravenous contrast precluding evaluation for pulmonary embolus. Scattered tiny tree-in-bud like opacities within the medial right upper and middle lobe, may be infectious or inflammatory. No focal consolidation. No pleural effusion. No pneumothorax. 2 mm right upper lobe nodular density (series 4, image 38). 3 mm subpleural right upper lobe nodule (series 4) image 41). Partially imaged probable splenules measure approximately 1.5 cm and 0.9 cm. Limited visualized portions of the upper abdomen appear otherwise grossly unremarkable. No acute osseous abnormality is detected. Impression: There is nondiagnostic enhancement of the pulmonary arteries due to missed bolus of the intravenous contrast precluding evaluation for pulmonary embolus. Scattered tiny tree-in-bud like opacities within the medial right upper and middle lobe, may be infectious or inflammatory. Correlate clinically. 2 mm right upper lobes and 3 mm subpleural right upper lobe nodule ; according to the 2017 Fleischner criteria, if the patient is low risk, no routine follow-up is recommended. If the patient is high risk, optional CT at 12 months is recommended.
--- NOTE | 2017-08-12 14:52 | NM ---
COMPARISON: Not available TECHNIQUE: 8.1 mCi Xe-133 Gas. 3.4 mCI technetium 99-m MAA administered intravenously. FINDINGS: VENTILATION COMPONENT: No ventilatory defect. PERFUSION COMPONENT: No perfusion defect IMPRESSION: No ventilation-perfusion mismatch. . Low probability.
[2017-08-12] MEDS: MethylPREDNISolone 40 mg Vial IVP SCH (22:00)
[2017-08-12] MEDS: Budesonide 0.5 mg/2 ml Inhal Susp UD INH SCH (22:33)
[2017-08-12] MEDS ORDERED: Albuterol-Ipratrop 3 mg / 0.5 (3 ml) UD INH STA (23:18)
[2017-08-13 00:26] LABS: HDL CHOLESTEROL 47 mg/dL (30-70)
[2017-08-13 00:37] LABS: LDL CHOLESTEROL 106 mg/dL (0-129)
[2017-08-13] MEDS: Albuterol-Ipratrop 3 mg / 0.5 (3 ml) UD IH SCH ×4 (02:07→19:48)
[2017-08-13 04:48] VITALS: RESP 20
[2017-08-13] MEDS: Budesonide 0.5 mg/2 ml Inhal Susp UD INH SCH ×2 (07:22→19:48)
[2017-08-13 07:35] LABS: HEMOGLOBIN 11.6 g/dL (11.0-16.0); MEAN CELL VOLUME 81.1 fL (81.0-99.0); MEAN CORPUSCULAR HEMOGLOBIN 28.1 pg (27.0-31.0); MEAN CORPUSCULAR HGB CONC 34.7 g/dL (33.0-37.0); MEAN PLATELET VOLUME 8.4 fL (7.2-11.7); RBC 4.12 Mil/uL (3.80-5.20); WHITE BLOOD COUNT 4.7 K/uL (4.8-10.8)
[2017-08-13 08:20] LABS: BLOOD UREA NITROGEN 10 mg/dL (7-17); CALCIUM 8.8 mg/dl (8.6-10.4); GFR AFRICAN-AMERICAN > 60; GFR NON-AFRICAN AMERICAN > 60
[2017-08-13] MEDS: MethylPREDNISolone 40 mg Vial IVP SCH ×2 (09:42→22:17)
[2017-08-13] MEDS: Enoxaparin 40 mg Syringe SC SCH (09:43)
--- NOTE | 2017-08-13 10:14 | HP ---
CHIEF COMPLAINT: Shortness of breath. HISTORY OF PRESENT ILLNESS: Ms. Aby Akins is a 42-year-old female with past medical history of oophorectomy recently, woke up to go to the bathroom and developed shortness of breath and took her peak flow and it was about 300. Tight chest pressure with coughing. The patient is 3 days post laparotomy, bilateral oophorectomy, no fever, no chills. No nausea, vomiting or diarrhea, speaking in complete sentences. The patient was seen in her room. The patient's was standing on the bedside also. The patient's symptoms started like upper respiratory tract illness. The patient was coughing and cough was productive. No fevers, chills, leg pain, calf pain or anxiety. PAST MEDICAL HISTORY: Asthma, never hospitalized; bronchitis, chronic; [facility]GICAL HISTORY: Tonsillectomy also. FAMILY HISTORY: Unknown. HABITS: No smoking. No drugs. No ethanol. ALLERGIES: THE PATIENT IS ALLERGIC TO SULFA, SULFAMETHOXAZOLE, TRIMETHOPRIM HOME MEDICATIONS: Nebulizer treatment. REVIEW OF SYSTEMS: The patient was seen and examined at the bedside in her room, boy friend standing at the bedside . Still having coughing with shortness of breath. No nausea, vomiting or diarrhea. No hematuria or hematochezia. Still having abdominal pain. No headache. No dizziness. No fever. No chills. No dysuria. PHYSICAL EXAMINATION: VITAL SIGNS: Temperature 98.3, pulse 94, blood pressure 130/77, respiratory rate 18. HEENT: Head normocephalic, atraumatic. Eyes: PERRLA. Extraocular muscles are intact. Conjunctivae clear. Nose patent. NECK: Supple. No carotid bruit. No JVD or thyromegaly. CHEST: Bilaterally symmetrical. HEART: S1 and S2 positive. LUNGS: Positive wheezing bilaterally. Poor air entry. ABDOMEN: Soft. Bowel sounds are present. No organomegaly. EXTREMITIES: No edema. No cyanosis. NEUROLOGICAL: The patient is awake, alert, moving all four extremities. No focal deficits. LABORATORY DATA: White blood cells 4.3, hemoglobin 12.1, hematocrit 35.4, platelets 280. Sodium 138, potassium 3.9, BUN 7, creatinine 0.7, glucose 98. ASSESSMENT AND PLAN: Ms. Aby Akins 42-year-old lady with leukopenia; arterial blood potassium is low; influenza type A and B negative; history of asthma, never hospitalized; bronchitis; tonsillectomy; 3 days post laparoscopic bilateral oophorectomy. Did chest x-ray and then did CAT scan of the chest showed there is a nondiagnostic enhancement in the pulmonary artery due to the missed bolus of intravenous , precluding the evaluation for pulmonary embolus; scattered tiny tree-in-bud like opacities within the medial right upper and middle lobe, may be infectious or inflammatory correlation is clinically; 2-mm right upper lobe and 3-mm subpleural right lobe nodules. According to 2017 criteria, the patient is at low risk. No routine followup is recommended. Need to follow up. Then, we did V/Q scan that is of low probability. We admitted the patient, gave albuterol, Pepcid, Pulmicort, gave bolus with the steroids in the hospital, now put on 40 mg IV q. 12 hour, Tylenol. We will call pulmonary consult, Gastrointestinal and deep venous thrombosis prophylaxis. Repeat labs. We will follow. Aminah Taylor MD [facility]DM[facility]enna
--- NOTE | 2017-08-13 18:36 | CARD ---
APPROVED REPORT EKG Measurement Heart [id number] <Conclusion> Normal sinus rhythm Normal ECG
[2017-08-14] MEDS: Albuterol-Ipratrop 3 mg / 0.5 (3 ml) UD IH SCH ×4 (01:32→19:25)
--- NOTE | 2017-08-14 03:22 | PN ---
DATE: The patient is a 42-year-old female. SUBJECTIVE: The patient is examined at the bedside, looking comfortable. Abdominal pain is better. Dyspnea is better. Shortness of breath is better. Cough is better. No hematuria or hematochezia. No swelling of the legs. No headache. No dizziness. PHYSICAL EXAMINATION: VITAL SIGNS: Temperature 97.7, pulse 71, blood pressure 111/73, and respiratory rate 20. HEENT: Head: Normocephalic, atraumatic. Eyes: PERRLA. Extraocular movements are intact. Conjunctivae clear. Nose patent. Mucous membranes are moist. NECK: Supple. No carotid bruits, JVD, or thyromegaly. CHEST: Bilaterally symmetrical. HEART: S1 and S2 positive. LUNGS: Clear to auscultation. ABDOMEN: Soft. Bowel sounds are positive. No organomegaly. EXTREMITIES: No edema. No cyanosis. NEUROLOGIC: The patient is awake and alert. Moving all 4 extremities with no focal deficits. MEDICATIONS: Ceftriaxone, albuterol, Lovenox, Pepcid, Pulmicort, Solu-Medrol, and Tylenol. LABORATORY DATA: White blood cells is 4.7, hemoglobin 11.6, hematocrit 33.4, and platelets 324. Sodium 134, potassium 4.6, BUN 10, creatinine 0.6, and glucose 144. ASSESSMENT AND PLAN: Ms. Aby Akins is a 42-year-old lady with leukopenia, anemia, hyperglycemia, and hyperthyroidism. Influenza type A and B is negative. lungs scan V/Q according to Dr. Gavin Velasquez, no ventilation perfusion mismatch, low probability. The patient has a history of asthma, never hospitalized. Has bronchitis, chronic. SURGERIES: History of laparoscopic bilateral oophorectomy in [facility] and a history of tonsillectomy. The patient got Pepcid, Pulmicort, gave bolus with steroids, obesity, history of abdominal surgeries, getting antibiotic, ceftriaxone, Lovenox for deep venous thrombosis prophylaxis, and Pepcid for gastrointestinal prophylaxis. Getting steroids. Pulmonary, Dr. Heron Oconnell is on the case - waiting for his input. Meanwhile, continue present treatment. Repeat labs. We will follow up. Aminah Taylor MD [facility] # [id number] MTDMckenna
[2017-08-14] MEDS: Budesonide 0.5 mg/2 ml Inhal Susp UD INH SCH ×2 (07:19→19:25)
[2017-08-14] MEDS: Enoxaparin 40 mg Syringe SC SCH (09:26)
[2017-08-14] MEDS: MethylPREDNISolone 40 mg Vial IVP SCH (09:26)
[2017-08-14] MEDS ORDERED: MethylPREDNISolone 40 mg Vial IVP SCH (23:00)
[2017-08-15] MEDS: Albuterol-Ipratrop 3 mg / 0.5 (3 ml) UD IH SCH ×3 (02:01→13:21)
--- NOTE | 2017-08-15 05:08 | PN ---
DATE: SUBJECTIVE: The patient is a 42-year-old female. The patient is seen and examined at the bedside, looking comfortable, cough is getting better, shortness of breath is getting better. No nausea, vomiting, or diarrhea. Did have bowel movement today. No hematuria. No hematochezia. No headache. No dizziness. PHYSICAL EXAMINATION: VITAL SIGNS: Temperature 97.9, pulse 86, blood pressure 120/85, and respiratory rate 20. HEENT: Head: Normocephalic, atraumatic. Eyes: PERRLA. Extraocular movements are intact. Conjunctivae clear. Nose patent. Mucous membranes are moist. NECK: Supple. No carotid bruits. No JVD or thyromegaly. CHEST: Bilaterally symmetrical. HEART: S1 and S2 positive. LUNGS: Clear to auscultation. ABDOMEN: Soft. Bowel sounds present. No organomegaly. EXTREMITIES: No edema. No cyanosis. NEUROLOGIC: The patient is awake and alert. Moving all four extremities with no focal deficits. MEDICATIONS: Ceftriaxone, Claritin, DuoNeb, Lovenox, Pepcid, Pulmicort, Singulair, Solu-Medrol, Tylenol. LABORATORY DATA: White blood cells 4.7, hemoglobin 11.6, hematocrit 33.4, and platelets 324. Sodium 134, potassium 4.6, BUN 10, creatinine 0.6, and glucose 144. ASSESSMENT AND PLAN: Ms. Aby Akins is a 42-year-old lady with leukopenia, hyperglycemia, influenza type A and B is negative. Lung scan V/Q done, reviewed by me. History of hyperthyroidism, history of asthma, never hospitalized, bronchitis, history of laparoscopic bilateral oophorectomy in [facility] and history of tonsillectomy, who was admitted with exacerbation of asthma, obesity, getting tapering dose of steroids, ceftriaxone, Lovenox for deep venous thrombosis prophylaxis, and Pepcid for gastrointestinal prophylaxis. Tool Keeper is on the case, waiting for the input. We will do tapering dose of steroids. As per patient, when she is walking around, she is getting shortness of breath. We will call Cardiology consult also. Repeat labs. We will follow. Aminah Taylor MD
[2017-08-15 07:20] LABS: HEMOGLOBIN 11.9 g/dL (11.0-16.0); MEAN CORPUSCULAR HEMOGLOBIN 27.5 pg (27.0-31.0); MEAN CORPUSCULAR HGB CONC 33.1 g/dL (33.0-37.0); MEAN PLATELET VOLUME 8.5 fL (7.2-11.7); RBC 4.34 Mil/uL (3.80-5.20); RED CELL DISTRIBUTION WIDTH 14.1 % (11.5-14.5); WHITE BLOOD COUNT 6.1 K/uL (4.8-10.8)
[2017-08-15 07:37] LABS: MEAN CELL VOLUME 83.1 fL (81.0-99.0)
[2017-08-15] MEDS: Budesonide 0.5 mg/2 ml Inhal Susp UD INH SCH (07:38)
[2017-08-15 08:13] LABS: BLOOD UREA NITROGEN 11 mg/dL (7-17); CALCIUM 8.8 mg/dl (8.6-10.4); GFR AFRICAN-AMERICAN > 60; GFR NON-AFRICAN AMERICAN > 60
[2017-08-15] MEDS ORDERED: MethylPREDNISolone 40 mg Vial IVP SCH (08:37)
--- NOTE | 2017-08-15 09:13 | CON ---
DATE: HISTORY OF PRESENT ILLNESS: Ms. Akins is a 42-year-old female with history of asthma, chief complaint shortness of breath, weakness, fatigue, tiredness. Patient came to the ER, advised admission. Patient has history of ovarian tumor removed shortly after patient showed of asthma. PE ruled out. Patient is a nonsmoker. Patient is not compliant with asthma medication. PHYSICAL EXAMINATION: GENERAL: The patient is awake, alert, and obese. VITAL SIGNS: Temperature 98, pulse 90. HEENT: Within normal limits. NECK: Supple. CHEST: Symmetrical. HEART: Regular. ABDOMEN: Soft. EXTREMITIES: No edema. IMPRESSION: Patient components of asthma . At this point, patient was advised to stick to her inhaled steroids and inhaler as needed. Patient advised to have a sleep study as an outpatient for the sleep apnea. Heron Oconnell MD
[2017-08-15] MEDS: Enoxaparin 40 mg Syringe SC SCH (11:00)
--- NOTE | 2017-08-15 15:18 | CP.PCM.PN ---
Subjective - Date & Time of Evaluation Date of Evaluation: 08/15/17 Time of Evaluation: 15:17 - Subjective Subjective: PT SEEN BY DR. MENCHACA THIS MORNING AND CLEARED FOR D/C IF CLEARED BY CONSULTS. PT HAS BEEN CLEARED BY PULM. NOT SEEN BY DR. YODER YET, HOWEVER SHE HAD ECHO DONE TODAY. I SPOKE W DR. YODER AND PER HIM IF DR. MENCHACA FEELS COMFORTABLE D/C THE PT THEN IT IS FINE W HIM, HOWEVER, HE HAS SEEN THE PT. PER Rebeca MENCHACA OK TO D/C PT HOME TODAY. ALL RX FOR MEDS GIVEN. SHE IS TO F/U WITH DR. MENCHACA IN THE OFFICE ON 08/19/17 ALREADY SCHEDULED. PT VERBALIZES UNDERSTANDING OF ALL D/ C INFORMATION AND RX. NO FURTHER ORDERS. Objective - Vital Signs/Intake and Output Vital Signs (last 24 hours): Temp Pulse Resp BP Pulse Ox 98 F 79 20 107/71 98 08/15/17 08:00 08/15/17 12:00 08/15/17 08:00 08/15/17 08:00 08/15/17 08:00 Intake and Output: 08/15/17 08/15/17 06:59 18:59 Intake Total 600 280 Balance 600 280 - Medications Medications: Current Medications Acetaminophen (Tylenol 325mg Tab) 650 mg PO Q4H PRN PRN Reason: pain fever Albuterol/Ipratropium (Duoneb 3 Mg/0.5 Mg (3 Ml) Ud) 3 ml IH RQ6 [facility] Last Admin: 08/15/17 13:21 Dose: 3 ml Budesonide (Pulmicort Respules) 0.5 mg INH RQ12 [facility] Last Admin: 08/15/17 07:38 Dose: 0.5 mg Enoxaparin Sodium (Lovenox) 40 mg SC DAILY [facility] Last Admin: 08/15/17 11:00 Dose: 40 mg Famotidine (Pepcid) 40 mg PO DAILY [facility] Last Admin: 08/15/17 11:00 Dose: 40 mg Ceftriaxone Sodium 1 gm/ (Sodium Chloride) 100 mls @ 100 mls/hr IVPB Q24H [facility] Last Admin: 08/14/17 22:56 Dose: 100 mls/hr Loratadine (Claritin) 10 mg PO HS [facility] Last Admin: 08/14/17 22:57 Dose: 10 mg Methylprednisolone (Solu-Medrol) 20 mg IVP Q12 [facility] Last Admin: 08/15/17 11:00 Dose: 20 mg Montelukast Sodium (Singulair) 10 mg PO HS [facility] Last Admin: 08/14/17 22:57 Dose: 10 mg - Labs Labs: 08/15/17 06:47 08/15/17 06:47 PT 12.3 SECONDS (9.7-12.2) H 08/12/17 07:00 INR 1.1 08/12/17 07:00 APTT 29 SECONDS (21-34) 08/12/17 07:00
--- NOTE | 2017-08-15 16:21 | CARD ---
APPROVED REPORT EXAM: Two-dimensional and M-mode echocardiogram with Doppler and color Doppler. Other Information Quality : GoodRhythm : INDICATION Dyspnea 2D DIMENSIONS IVSd1.1 (0.7-1.1cm)LVDd4.3 (3.9-5.9cm) PWd1.4 (0.7-1.1cm)LVDs3.4 (2.5-4.0cm) FS (%) 20.5 %LVEF (%)42.1 (>50%) M-Mode DIMENSIONS Left Atrium (MM)2.55 (2.5-4.0cm)IVSd1.18 (0.7-1.1cm) Aortic Root2.50 (2.2-3.7cm)LVDd3.96 (4.0-5.6cm) Aortic Cusp Exc.1.87 (1.5-2.0cm)PWd1.49 (0.7-1.1cm) FS (%) 28 %LVDs2.85 (2.0-3.8cm) LVEF (%)55 (>50%) Mitral Valve MV E Aoyisrwa46.2cm/sMV A Akwgnuyy77.1cm/sE/A ratio1.4 TDI E/Lateral E'0.0E/Medial E'0.0 Tricuspid Valve TR Peak [id number]/sTR Peak Gr.15mmHg LEFT VENTRICLE The left ventricle is normal size. There is normal left ventricular wall thickness. The left ventricular function is normal. The left ventricular ejection fraction is within the normal range. There is normal LV segmental wall motion. The left ventricular diastolic function is normal. RIGHT VENTRICLE The right ventricle is normal size. There is normal right ventricular wall thickness. The right ventricular systolic function is normal. ATRIA The left atrium size is normal. The right atrium size is normal. AORTIC VALVE The aortic valve is not well visualized. No aortic regurgitation is present. There is no aortic valvular stenosis. MITRAL VALVE The mitral valve is normal in structure. There is no mitral valve stenosis. TRICUSPID VALVE The tricuspid valve is normal in structure. There is no tricuspid valve regurgitation noted. GREAT VESSELS The aortic root is normal in size. The IVC was not visualized. PERICARDIAL EFFUSION There is a trace loculated anterior pericardial effusion. <Conclusion> The left ventricle is normal size. There is normal left ventricular wall thickness. The left ventricular function is normal. The left ventricular ejection fraction is within the normal range. There is normal LV segmental wall motion. The left ventricular diastolic function is normal.
[2017-08-15 16:49] VITALS: BP 126/86; PULSE 67; TEMP 98; O2SAT 97
== END 2017-08-15 16:52 | disposition home or self-care (01) | DRG 202 ==
LOC: C.ER 05:48 → C.9E 13:10 → C.6T 18:38 → OBSVTOIN 08-13 16:07
PROVIDERS: ADMIT Internal Medicine; ATTEND Internal Medicine
DX: J45.901 Unspecified asthma with (acute) exacerbation (principal); D72.819 Decreased white blood cell count, unspecified; D64.9 Anemia, unspecified; E05.90 Thyrotoxicosis, unspecified without thyrotoxic crisis or storm; J42 Unspecified chronic bronchitis; E66.9 Obesity, unspecified; Z68.41 Body mass index [BMI] 40.0-44.9, adult; Z90.722 Acquired absence of ovaries, bilateral

== ENCOUNTER 2017-12-05 14:10 | Emergency (ER) | payer OTHER ==
[2017-12-05 14:11] VITALS: BMI 41.8
[2017-12-05 14:34] VITALS: BP 146/82; PULSE 71; RESP 20; TEMP 98.3; O2SAT 100
[2017-12-05] MEDS ORDERED: MethylPREDNISolone 40 mg Vial IM STA (15:37)
[2017-12-05] MEDS ORDERED: MethylPREDNISolone 40 mg Vial ONE (15:44)
--- NOTE | 2017-12-05 16:34 | C.PDOC ---
Time Seen by Provider: 12/05/17 15:10 Chief Complaint (Nursing): Allergic Reaction Past Medical History Vital Signs: Last Vital Signs Temp 98.3 F 12/05/17 14:30 Pulse 71 12/05/17 14:30 Resp 20 12/05/17 14:30 BP 146/82 12/05/17 14:30 Pulse Ox 100 12/05/17 14:30 - Medical History PMH: Asthma, Bronchitis Denies: Chronic Kidney Disease Surgical History: Tonsillectomy - [facility] Procedures EXCISION OF RIGHT OVARY, PERCUTANEOUS ENDOSCOPIC APPROACH (01/07/17) EXCISION OF UTERINE SUPPORTING STRUCTURE, PERC ENDO APPROACH (01/07/17) RESECTION OF BI FALLOPIAN TUBE, VIA OPENING W PERC ENDO (01/07/17) RESECTION OF CERVIX, VIA NATURAL OR ARTIFICIAL OPENING (01/07/17) RESECTION OF UTERUS, VIA OPENING W PERC ENDO (01/07/17) - Social History Hx Alcohol Use: Yes Hx Substance Use: No - Immunization History Hx Tetanus Toxoid Vaccination: No Hx Influenza Vaccination: No Hx Pneumococcal Vaccination: No ED Course And Treatment O2 Sat by Pulse Oximetry: 100 Disposition - Disposition Referrals: [facility] [Outside] Disposition: HOME/ ROUTINE Disposition Time: 16:32 Condition: GOOD Additional Instructions: Follow up with the medical doctor within 1-2 days. Return if worsened. Prescriptions: DiphenhydrAMINE [Benadryl] 25 mg PO QID #28 cap Famotidine [Pepcid] 20 mg PO BID #20 tab predniSONE [Prednisone] 20 mg PO BID #10 tab Instructions: Food Allergy Forms: [facility] (French) - Clinical Impression Clinical Impression: Food allergy
--- NOTE | 2017-12-05 16:37 | C.PDOC ---
History Of Present Illness 42-year-old female, presents to the emergency department with complaints of allergic reaction. Patient states she has an allergy to spinach, states she consumed a meal with spinach in it without realizing. Patient reports sudden onset itching inside of mouth, face and neck. She took a Benadryl at work and came here. Patient denies chest pain, shortness of breath, nausea/vomiting, or any other associated symptoms. No other complaints at this time. Time Seen by Provider: 12/05/17 15:10 Chief Complaint (Nursing): Allergic Reaction History Per: Patient History/Exam Limitations: no limitations Onset/Duration Of Symptoms: Persistent Current Symptoms Are (Timing): Better Home/EMS Treatment: Benadryl Pain Scale Rating Of: 0 Recent travel outside of the [place]: No Past Medical History Reviewed: Historical Data, Nursing Documentation, Vital Signs Vital Signs: Last Vital Signs Temp 98.3 F 12/05/17 14:30 Pulse 71 12/05/17 14:30 Resp 20 12/05/17 14:30 BP 146/82 12/05/17 14:30 Pulse Ox 100 12/05/17 16:45 - Medical History PMH: Asthma, Bronchitis Surgical History: Tonsillectomy - [facility] Procedures EXCISION OF RIGHT OVARY, PERCUTANEOUS ENDOSCOPIC APPROACH (01/07/17) EXCISION OF UTERINE SUPPORTING STRUCTURE, PERC ENDO APPROACH (01/07/17) RESECTION OF BI FALLOPIAN TUBE, VIA OPENING W PERC ENDO (01/07/17) RESECTION OF CERVIX, VIA NATURAL OR ARTIFICIAL OPENING (01/07/17) RESECTION OF UTERUS, VIA OPENING W PERC ENDO (01/07/17) Family History: States: No Known Family Hx - Social History Hx Alcohol Use: Yes Hx Substance Use: No - Immunization History Hx Tetanus Toxoid Vaccination: No Hx Influenza Vaccination: No Hx Pneumococcal Vaccination: No Review Of Systems Except As Marked, All Systems Reviewed And Found Negative. Constitutional: Negative for: Fever, Chills Cardiovascular: Negative for: Chest Pain, Palpitations Respiratory: Negative for: Shortness of Breath Gastrointestinal: Negative for: Nausea, Vomiting Skin: Positive for: Rash Neurological: Negative for: Weakness, Numbness, Headache, Dizziness Physical Exam - Physical Exam Appears: Well, Non-toxic, No Acute Distress Skin: Warm, Dry, Rash (scant erythema to right cheek) Head: Atraumatic, Normacephalic Eye(s): bilateral: Normal Inspection (No swelling) Nose: Normal Oral Mucosa: Moist Tongue: Normal Appearing, No Swelling Lips: Normal Appearing, No Swelling Throat: No Erythema, No Exudate, No Drooling, No Mass Neck: Normal ROM, Supple Chest: Symmetrical, No Tenderness, No Ecchymosis, No Subcutaneous Emphysema Cardiovascular: Rhythm Regular, No Murmur Respiratory: Normal Breath Sounds, No Accessory Muscle Use, No Rales, No Rhonchi , No Stridor, No Wheezing Gastrointestinal/Abdominal: Soft, No Tenderness Extremity: Normal ROM, No Deformity, No Swelling Neurological/Psych: Oriented x3, Normal Speech Gait: Steady ED Course And Treatment O2 Sat by Pulse Oximetry: 100 (RA) Pulse Ox Interpretation: Normal Progress Note: Pt treated with Benadryl, Solumedrol and Pepcid. Medical Decision Making Medical Decision Making: On re-exam, the patient reports improvement of symptoms. Lungs are CTA, heart is RRR, abdomen is soft, non-tender and tolerating PO well. Ambulatory in the ED with steady gait. Disposition - Disposition Referrals: [facility] [Outside] Disposition: HOME/ ROUTINE Disposition Time: 16:32 Condition: GOOD Additional Instructions: Follow up with the medical doctor within 1-2 days. Return if worsened. Prescriptions: DiphenhydrAMINE [Benadryl] 25 mg PO QID #28 cap Famotidine [Pepcid] 20 mg PO BID #20 tab predniSONE [Prednisone] 20 mg PO BID #10 tab Instructions: Food Allergy Forms: [facility] (Ukrainian), Work Excuse - Clinical Impression Clinical Impression: Food allergy, Allergic urticaria - Scribe Statement The provider has reviewed the documentation as recorded by the Scribe (Kathi chacon) All medical record entries made by the Scribe were at my direction and personally dictated by me. I have reviewed the chart and agree that the record accurately reflects my personal performance of the history, physical exam, medical decision making, and the department course for this patient. I have also personally directed, reviewed, and agree with the discharge instructions and disposition.
== END 2017-12-05 16:51 | disposition home or self-care (01) ==
LOC: C.ER 14:10
DX: L27.2 Dermatitis due to ingested food (principal); L50.0 Allergic urticaria
CPT/HCPCS: 96372; 99283; J2920